=== PATIENT | male | born 2000 | race Two or more races ===

== ENCOUNTER 2021-12-30 19:59 | Emergency (ER) | payer OTHER ==
[~2021-12-30] VITALS: Ht 177.8 cm; Wt 74.4 kg
[2021-12-30] MEDS ORDERED: CEPHALEXIN500 M1 PO (22:22)
== END 2021-12-30 22:24 | disposition home or self-care (01) ==
LOC: EMR PED 19:59 → ER 19:59 → EMR PED 20:30 → ER 20:30
DX: S61.204A Unspecified open wound of right ring finger without damage to nail, initial encounter (principal); S61.401A Unspecified open wound of right hand, initial encounter; W25.XXXA Contact with sharp glass, initial encounter; Y93.89 Activity, other specified; Y92.89 Other specified places as the place of occurrence of the external cause; Z91.013 Allergy to seafood